=== PATIENT | male | born 2000 | race Caucasian/White ===

== ENCOUNTER 2019-04-15 14:56 | Emergency (ER) | payer SELFPAY ==
[2019-04-15 15:07] VITALS: BP 136/71; PULSE 85; BMI 22.1
--- NOTE | 2019-04-15 16:42 | PDOC ---
History of Present Illness - General Chief Complaint: Injury Stated Complaint: LAC ON LIP History Source: Patient Exam Limitations: No Limitations - History of Present Illness Initial Comments: 04/15/19 16:37 Patient is a 19-year-old woman with no past medical history. Complains of laceration to the upper lip since about 2 PM she was in a soccer game hitting his face on the ground. States it was washed out by the EMS and anesthetic applied. No head strike. Denies nausea, vomiting, headache PMD: [facility] PMHX: as above PSOCHX: neg cig, ALL: NKDA GENERAL/CONSTITUTIONAL: No fever or chills. No weakness. No weight change. HEAD, EYES, EARS, NOSE AND THROAT: No change in vision. No ear pain or discharge. No sore throat. RESPIRATORY: No cough, wheezing, or hemoptysis. GENITOURINARY: No dysuria, frequency, or change in urination. MUSCULOSKELETAL: No joint or muscle swelling or pain. No neck or back pain. ALLERGIC/IMMUNOLOGIC: No hives or skin allergy. No latex allergy. GENERAL: The patient is awake, alert, and fully oriented, in no acute distress. HEAD: scalp normal signs, right facial abrasion, laceration to the right upper lip EYES: Pupils equal, round and reactive to light, extraocular movements intact, sclera anicteric, conjunctiva clear. ENT: Ears normal, nares patent, oropharynx clear without exudates. Moist mucous membranes, dentition intact EXTREMITIES: Normal range of motion, no edema. No clubbing or cyanosis. No cords, erythema, or tenderness. NEUROLOGICAL: Cranial nerves II through XII grossly intact. Normal speech, normal gait. SKIN: 2.7cm laceration, irreg shape, full thickness across the emily border with surrounding abrsion to the cheeck. Past History - Past Medical History Allergies/Adverse Reactions: Allergies Allergy/AdvReac Type Severity Reaction Status Date / Time No Known Allergies Allergy Verified 04/15/19 15:08 Home Medications: Ambulatory Orders Cephalexin Monohydrate [Keflex -] 500 mg PO Q8H #21 capsule 04/15/19 Cephalexin Monohydrate [Keflex -] 500 mg PO Q8H #21 capsule 04/15/19 Ibuprofen [Motrin -] 600 mg PO QID #28 tablet 04/15/19 COPD: No - Suicide/Smoking/Psychosocial Hx Smoking History: Never smoked Information on smoking cessation initiated: No Hx Alcohol Use: Yes Drug/Substance Use Hx: No *Physical Exam - Vital Signs Last Vital Signs Temp Pulse Resp BP Pulse Ox 85 16 136/71 100 04/15/19 15:05 04/15/19 15:05 04/15/19 15:05 04/15/19 15:05 Procedures - Laceration/Wound Repair Right Upper Lip Wound Length: 2.6 to 5.0 cm Wound Explored: clean Wound's Depth, Shape: irregular, flap Irrigated w/ Saline: Yes Betadine Prep: Yes Anesthesia: 1% Lidocaine Wound Repaired With: Sutures Suture Size/Type: 6:0, nylon Number of Sutures: 11 Deep Layer Suture Size/Type: 5:0, vycril Number of Deep Layer Sutures: 4 Sterile Dressing Applied: Yes Medical Decision Making - Medical Decision Making 04/15/19 16:37 Patient is a 19-year-old woman with no past medical history. Complains of laceration to the upper lip since about 2 PM she was in a soccer game hitting his face on the ground. States it was washed out by the EMS and anesthetic applied. laceration sutured Keflex 500mg po discharge I discussed the physical exam findings, ancillary test results and final diagnoses with the patient. I answered all of the patient's questions. The patient was satisfied with the care received and felt comfortable with the discharge plan and treatment plan. The Patient agrees to follow up with the primary care physician within 24-72 hours. *DC/Admit/Observation/Transfer Diagnosis at time of Disposition: Laceration of lip Qualifiers: Encounter type: initial encounter Qualified Code(s): S01.511A - Laceration without foreign body of lip, initial encounter - Discharge Dispostion Disposition: HOME Condition at time of disposition: Stable - Prescriptions Prescriptions: Cephalexin Monohydrate [Keflex -] 500 mg PO Q8H #21 capsule Cephalexin Monohydrate [Keflex -] 500 mg PO Q8H #21 capsule Ibuprofen [Motrin -] 600 mg PO QID #28 tablet - Referrals Referrals: ON STAFF,NOT [Primary Care Provider] - - Patient Instructions Printed Discharge Instructions: DI for Laceration Repair -- Complex Suture Additional Instructions: Your Discharge Instructions: You must call primary care physician within 24 hours to arrange follow-up. Return to the Emergency Department with any new, persistent or worsening symptoms, for fever, chills, SOB, dizziness or any other concerning changes that may occur. Wound care in 2 days and suture removal in 7 days. The antibiotics as prescribed. - Post Discharge Activity
[2019-04-15] MEDS ORDERED: CEPHALEXIN MONOHYDRATE 500 MG CAPSULE (UD) PO ONE (16:44)
[2019-04-15] MEDS ORDERED: CEPHALEXIN MONOHYDRATE 500 MG CAPSULE (UD) ONE (16:50)
== END 2019-04-15 17:00 | disposition home or self-care (01) ==
LOC: JERFT 14:56
DX: S01.511A Laceration without foreign body of lip, initial encounter (principal); W01.0XXA Fall on same level from slipping, tripping and stumbling without subsequent striking against object, initial encounter; Y93.66 Activity, soccer; Y92.322 Soccer field as the place of occurrence of the external cause; Y99.8 Other external cause status
CPT/HCPCS: 99282-25